=== PATIENT | male | born 1985 | race African-American/Black ===

== ENCOUNTER 2017-02-13 12:20 | Emergency (ER) | payer SELFPAY ==
[~2017-02-13] VITALS: Ht 172.7 cm; Wt 79.4 kg
[~2017-02-13 12:20] MED LIST: ALBU6.7H IH; ALBU8.5H8 INH; SELE120S2 TP
[2017-02-13 12:46] VITALS: BP 124/81
--- NOTE | 2017-02-13 13:19 | PHYS DOC ---
Past History Past Medical History: No Pertinent History Past Surgical History: Other Smoking: Non-smoker Alcohol Use: Occasionally Drug Use: Marijuana Adult General Chief Complaint Chief Complaint: MULTIPLE COMPLAINTS [facility] HPI 31-year-old male patient states he has had pain and a knot in left testicle for more than one year that gradually getting worse. Patient state he was seen by different physician but never had ultrasound. Patient states he feels pain with his urination and pressure conation sometimes but denies plan discharge or new sexual partner or concern for STD. Patient also complaining of loose stool after eating dairy product for the last 3 months. Patient state he eats red meat he feels hot for the last 1 month and did not take any red meat for the last 1 month. Patient denies chest pain and shortness of breath, focal neuro deficit, change of weight. Review of Systems Review of Systems Constitutional: Denies fever or chills [] Eyes: Denies change in visual acuity, redness, or eye pain [] HENT: Denies nasal congestion or sore throat [] Respiratory: Denies cough or shortness of breath [] Cardiovascular: No additional information not addressed in HPI [] GI: Denies abdominal pain, nausea, vomiting, reports diarrhea [] : Denies hematuria , reports dysuria and testicular pain[] Musculoskeletal: Denies back pain or joint pain [] Integument: Denies rash or skin lesions [] Neurologic: Denies headache, focal weakness or sensory changes [] Endocrine: Denies polyuria or polydipsia [] All other systems were reviewed and found to be within normal limits, except as documented in this note. Allergies Allergies Allergies Coded Allergies Type Severity Reaction Last Updated Verified No Known Drug Allergies 07/02/15 No Physical Exam Physical Exam Constitutional: Well developed, well nourished, no acute distress, non-toxic appearance. [] HENT: Normocephalic, atraumatic, bilateral external ears normal, oropharynx moist, no oral exudates, nose normal. [] Eyes: PERRLA, EOMI, conjunctiva normal, no discharge. [] Neck: Normal range of motion, no tenderness, supple, no stridor. [] Cardiovascular:Heart rate regular rhythm, no murmur [] Lungs & Thorax: Bilateral breath sounds clear to auscultation [] Abdomen: Bowel sounds normal, soft, no tenderness, no masses, no pulsatile masses. [] Skin: Warm, dry, no erythema, no rash. [] Back: No tenderness, no CVA tenderness. [] Extremities: No tenderness, no cyanosis, no clubbing, ROM intact, no edema. [] Neurologic: Alert and oriented X 3, normal motor function, normal sensory function, no focal deficits noted. [] Psychologic: Affect normal, judgement normal, mood normal. [ Genital exam with present of certified pesticide applicator showed normal penis and scrotum without palpated mass or tenderness] Current Patient Data Vital Signs Vital Signs Date Time Temp Pulse Resp B/P (MAP) Pulse Ox O2 Delivery O2 Flow Rate FiO2 02/13/17 12:46 99.1 75 18 100 Room Air EKG EKG [] Radiology/Procedures Radiology/Procedures [] Course & Med Decision Making Course & Med Decision Making Pertinent Labs and Imaging studies reviewed. (See chart for details) Evaluation of patient in ER showed 31-year-old male patient with several chronic complaint. Patient had unremarkable physical exam and UA and testicular ultrasound except for small left varicocele. Patient instructed to follow with a primary care physician for chronic problem. Dragon Disclaimer Dragon Disclaimer This electronic medical record was generated, in whole or in part, using a voice recognition dictation system. Departure Departure: Impression: Primary Impression: Left varicocele Additional Impressions: Testicular pain, left Epididymal cyst Dairy product intolerance Disposition: HOME, SELF-CARE ([id number]) Condition: STABLE Referrals: PCP,NO (PCP) Patient Instructions: Food Allergy Additional Instructions: Follow-up with the primary care physician in 3-5 days May take [id number] Tylenol or ibuprofen for testicular pain Problem Qualifiers ANNA VERA MD Feb 13, 2017 13:19
[2017-02-13 13:47] LABS: BILIRUBIN,URINE NEG (NEG); CLARITY,URINE CLEAR; COLOR,URINE AMBER; GLUCOSE,URINE NEG (NEG)
[2017-02-13 13:48] LABS: BACTERIA,URINE 0 /HPF (0-FEW); NITRITE,URINE NEG (NEG); RBC,URINE 0 /HPF (0-2); SQUAMOUS EPITHELIAL CELL,UR OCC /LPF; UROBILINOGEN,URINE 0.2 mg/dL (0.2 mg/dL); WBC,URINE 0 /HPF (0-4)
--- NOTE | 2017-02-13 14:16 | RAD ---
Indication: Left testicular pain and lump. The right testicle measures 3.7 x 2.9 x 2.0 cm and the left testicle measures 3.9 x 2.8 x 1.9 cm. Both testes demonstrate homogeneous echotexture. No discrete testicular mass is seen. There is normal blood flow to both testes. The right epididymis does contain a 4 mm cyst. Left epididymis also contains a 4 mm cyst. There is a varicocele on the left side. No hydrocele is seen. Impression: 1. No evidence of testicular mass or vascular compromise. 2. Small bilateral epididymal cysts and left varicocele.
== END 2017-02-13 15:47 | disposition home or self-care (01) ==
LOC: ER 12:20
DX: I86.1 Scrotal varices (principal); N50.3 Cyst of epididymis; K90.49 Malabsorption due to intolerance, not elsewhere classified; F12.10 Cannabis abuse, uncomplicated
CPT/HCPCS: 76870; 81001; 99285-25

== ENCOUNTER 2020-01-15 10:40 | Emergency (ER) | payer OTHER ==
[~2020-01-15] VITALS: Ht 172.7 cm; Wt 40.9 kg
[~2020-01-15 10:40] MED LIST changes: +ALBU2.5V8 IH; +ALBU2.5V8 INH; -ALBU6.7H IH; -ALBU8.5H8 INH
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
--- NOTE | 2020-01-15 11:12 | RAD ---
INDICATION: Reason: CHEST PAIN / Spl. Instructions: / History: COMPARISON: None. FINDINGS: Single view of chest obtained. Cardiac silhouette mildly prominent in size but likely exaggerated by portable technique. No definite focal consolidation or pulmonary edema. IMPRESSION: * No focal airspace consolidation or edema. Electronically signed by: Jake Haas MD (01/15/2020 11:09 AM) [id number]
[2020-01-15 11:19] LABS: BASO % 0 % (0-3); EOS # 0.1 x10^3/uL (0.0-0.7); EOS % 1 % (0-3); HEMATOCRIT 49.8 % (39.0-53.0); LYMPH # 2.6 x10^3/uL (1.0-4.8); LYMPH % 43 % (24-48); MEAN CORPUSCULAR HEMOGLOBIN 31 pg (25-35); MEAN CORPUSCULAR HGB CONC 34 g/dL (31-37); MEAN CORPUSCULAR VOLUME 89 fL (79-100); MONO # 0.8 x10^3/uL (0.0-1.1); MONO % 14 % (0-9); NEUT # 2.5 x10^3uL (1.8-7.7); NEUT % 41 % (31-73); PLATELET COUNT 300 x10^3/uL (140-400); RED BLOOD COUNT 5.59 x10^6/uL (4.30-5.70); RED CELL DISTRIBUTION WIDTH 13.5 % (11.5-14.5)
[2020-01-15 11:31] LABS: CALCIUM 9.5 mg/dL (8.5-10.1); CREATININE 1.6 mg/dL (0.7-1.3); GFR 59.5; POTASSIUM 4.1 mmol/L (3.5-5.1)
[2020-01-15 11:40] LABS: ALBUMIN 4.1 g/dL (3.4-5.0); ALBUMIN/GLOBULIN RATIO 1.1 (1.0-1.7); TOTAL BILIRUBIN 0.5 mg/dL (0.2-1.0); TOTAL PROTEIN 7.9 g/dL (6.4-8.2)
--- NOTE | 2020-01-15 13:05 | EKG ---
[address] [address] Test Date: 2020-01-15 Test Time: 10:48:13 Pat Name: CA WRIGHT Department: Room: Gender: M Physician Gynecologist: BAY : 1985 Requested By: GLENNA HIRSCH Order Number: [id number] Reading MD: Measurements Intervals [place] Rate: 76 P: 62 [place]: 144 QRS: 41 QRSD: 80 T: 8 QT: 334 QTc: 380 Interpretive Statements SINUS RHYTHM OTHERWISE NORMAL ECG RI6.02 No previous ECG available for comparison
== END 2020-01-15 14:49 | disposition home or self-care (01) ==
LOC: ER 10:40
DX: N17.9 Acute kidney failure, unspecified (principal); R07.89 Other chest pain; R53.1 Weakness
CPT/HCPCS: 36415; 71045; 80053; 83690; 84484; 85025; 85379; 93005; 99285

== ENCOUNTER → 2020-03-29 | Outpatient (CLI) | payer OTHER ==
--- NOTE | 2020-03-29 17:05 | RAD ---
INDICATION: Testicular pain. COMPARISON: January 2017 TECHNIQUE: Grayscale, color and spectral doppler ultrasound images obtained of the scrotum. FINDINGS: Right Testicle: 39 x 28 x 20 mm. Vascular flow is identified. Left Testicle: 40 x 24 x 21 mm. Vascular flow is identified. 4 mm right and 3 mm left epididymal cyst. Small left varicocele IMPRESSION: * Vascular flow is identified to the bilateral testicles. Electronically signed by: Jake Haas MD (03/29/2020 5:02 PM) [id number]
== END ==
LOC: US 09:59
PROVIDERS: ATTEND Family Medicine
DX: I86.1 Scrotal varices (principal); N50.3 Cyst of epididymis; N49.2 Inflammatory disorders of scrotum
CPT/HCPCS: 76870